=== PATIENT | male | born 1970 | race Hispanic/Latino ===

== ENCOUNTER 2018-01-06 21:56 | Emergency (ER) | payer BC, OTHER ==
--- NOTE | 2018-01-06 23:13 | RAD ---
THREE VIEWS LEFT ANKLE: 01/06/18 HISTORY: Left ankle pain. COMPARISON: 01/06/18 at 1620 hours. FINDINGS/IMPRESSION: On the AP projection, the talus appears laterally displaced with relation to the remainder of the mid foot and the anterior process of the talus does not align appropriately with the navicular bone on th e oblique view. Lateral projection does suggest fracture involving the distal talus. The subtalar yeni nt is also not well visualized on this exam. Again, findings are most suggestive of a fracture involv ing the talus with dislocation dislocation of the talus with respect to the calcaneus and probable di splacement and rotation of the fracture involving the anterior process of the talus. However, further evaluation with CT scan of the left foot is recommended. There is subcutaneous soft tissue swelling about the foot. Above findings discussed with Virginia Lea NP in the emergency department on 01/07/28 at 11:02 hour s. POS: EDIN
[2018-01-07] MEDS ORDERED: HYDROcodone/Acetaminophen 10/325 mg Tablet ONE (00:16)
--- NOTE | 2018-01-07 07:37 | CT ---
NONCONTRAST CT LEFT ANKLE AND FOOT: Date: 01/06/18 HISTORY: Fracture/dislocation left hindfoot noted on recent plain film evaluation also obtained on this date. The patient has left ankle pain after falling and twisting injury. FINDINGS: As noted on the plain film evaluation, the anterior process of the talus is dislocated laterally with respect to the navicular bone. There is evidence of a fracture involving the anterior and medial asp ect of the anterior process of the talus with several small fracture fragments also seen adjacent to the medial aspect of the talus. There is also a fracture involving the posterior and medial aspect of the talus with several displaced fracture fragments identified with dislocation at the level of the subtalar joint as well. The ankle mortise does appear congruent. No definite fracture is seen involvi ng the calcaneus. The talus is also dislocated slightly anteriorly with respect to the calcaneus. No additional fracture is appreciated. There is evidence of a joint effusion with punctate foci of gas seen adjacent to the navicular bone. There is subcutaneous soft tissue swelling about the dorsal aspect of the mid foot. There is subcutan eous edema also seen at both the medial and lateral aspect of the hindfoot and ankle. IMPRESSION: 1. Fracture and dislocation of the talus with respect to the calcaneus, primarily in the region of t he subtalar joint, as well as dislocation at the level of the talonavicular joint with several fractu re fragments seen involving the posteromedial aspect of the talus, as well as involving the anterior process of the talus. 2. Subcutaneous edema with joint effusion in the region of the talonavicular joint. POS: EDIN
== END 2018-01-07 00:22 | disposition home or self-care (01) ==
LOC: ERS 21:56
DX: S92.902A Unspecified fracture of left foot, initial encounter for closed fracture (principal); X50.1XXA Overexertion from prolonged static or awkward postures, initial encounter
CPT/HCPCS: 96372

== ENCOUNTER 2018-01-11 13:38 | Inpatient (IN) | payer BC, OTHER ==
[~2018-01-11 13:38] MED LIST: Bupivacaine HCl 0.5%/Epinephrine 1:200,000/PF 30 ml Vial ONE; Bupivacaine/Epinephrine 0.25% 30 ML VIAL ONE; Lidocaine 1% PF 5 ML VIAL ONE; Ondansetron HCl/PF 4 MG/2 ML Vial ONE; Propofol 200 MG/20 ML VIAL ONE; Succinylcholine Chloride 20 MG/ML 10 ml SYRINGE FS ONE
[2018-01-11] MEDS ORDERED: Midazolam HCl 2 mg/2 ml Vial ONE ×2 (14:28→16:31)
[2018-01-11] MEDS ORDERED: Fentanyl 100 MCG/2 ML VIAL ONE ×2 (14:29→16:31)
[2018-01-11] MEDS ORDERED: Dexamethasone 4 mg/ml Vial ONE (14:30)
[2018-01-11] MEDS ORDERED: Promethazine HCl 25 MG/ML VIAL IM PRN (14:50)
[2018-01-11] MEDS ORDERED: HYDROcodone/Acetaminophen 10/325 mg Tablet PO PRN ×2 (14:50)
[2018-01-11] MEDS ORDERED: traMADol HCl 50 MG TAB PO PRN ×2 (14:50)
[2018-01-11] MEDS ORDERED: Ondansetron HCl/PF 4 MG/2 ML Vial IVP PRN (14:50)
[2018-01-11] MEDS ORDERED: Zolpidem Tartrate 5 MG TAB PO PRN (14:50)
[2018-01-11] MEDS ORDERED: Ropivacaine 0.2% 550 ML 550 ML NERVE BLCK SCH (14:50)
[2018-01-11] MEDS ORDERED: Morphine 4 MG/ML VIAL SLOW IVP PRN (14:52)
[2018-01-11] MEDS ORDERED: CEFAZOLIN/Water 2 GM/20 ML SYRINGE ONE (15:09)
[2018-01-11 16:02] LABS: #Basophils 0.1 thou/uL (0.0-0.2); #Eosinphils 0.1 thou/uL (0.0-0.7); #Lymphocytes 5.4 thou/uL (1.20-3.40); #Monocytes 0.9 thou/uL (0.11-0.59); #Neutrophils 5.9 thou/uL (1.40-6.50); %Basophils 0.7 % (0.0-1.0); %Eosinophils 1.1 % (0.0-10.0); %Lymphocytes 43.6 % (21.0-51.0); %Monocytes 7.2 % (0.0-10.0); %Neutrophils 47.3 % (42.0-75.0); Hemoglobin 13.4 g/dL (14.0-18.0); Mean Corpuscular HGB CONC 35.1 g/dL (32.0-36.0); Mean Corpuscular Volume 88.4 fl (80.0-94.0); Mean Platelet Volume 6.7 fL (7.4-10.4); Platelet Count 193 thou/uL (130-400); RBC Distribution Width 11.6 % (11.5-14.5); Red Blood Cell (RBC) Count 4.31 mill/uL (4.70-6.10); White Blood Cell (WBC) Count 12.4 thou/uL (4.8-10.8)
[2018-01-11] MEDS ORDERED: Ketorolac Tromethamine 30 MG/ML VIAL IVP SCH (18:00)
--- NOTE | 2018-01-11 19:02 | RAD ---
THREE VIEWS OF THE LEFT ANKLE: 01/11/18 COMPARISON: 01/06/18. HISTORY: Closed reduction of ankle. FINDINGS/IMPRESSION: Three limited intraoperative fluoroscopic views of the left ankle were submitted for interpretation. No fracture or dislocation is appreciated on this exam, but evaluation is limited with the fluoroscop ic images. POS: EDIN
--- NOTE | 2018-01-12 21:02 | OP ---
DATE OF SURGERY: 01/11/2018 PREOPERATIVE DIAGNOSIS: Left subtalar dislocation with medial tubercle of the posterior process frac ture. POSTOPERATIVE DIAGNOSIS: Left subtalar dislocation with medial tubercle of the posterior process fra cture. SURGICAL PROCEDURE: Closed reduction of left subtalar dislocation. ANESTHESIA: General. SURGEON: Zackery Claudio M.D. OCCUPATIONAL REHABILITATION AIDE: Britton Reyes PA-C TOURNIQUET TIME: Zero. IMPLANTS: None. DRAINS: None. SPECIMEN: None. OUTCOME: Satisfactory. INDICATIONS: Mr. Rosales is a pleasant 47-year-old gentleman who fell from a height of approximately 1 5 feet into a ditch, sustaining injury to his left ankle. He was seen and evaluated at [facility] on 01/06/2018, at which time, x-rays of the left ankle and CT scan of the left foot were obtai gunjan. These studies demonstrated a left subtalar dislocation with fracture of the medial tubercle of the posterior process. Unfortunately, this was not reduced and upon presentation to my office ana maria mayberry was found to have a persistent subtalar dislocation. As such, the patient is taken to the op erating room emergently for reduction. We did make an attempt to contact workman's compensation for authorization; however, I did not feel that we could wait for authorization due to the emergent natur e of this subtalar dislocation. PROCEDURE IN DETAIL: The patient was brought to the operating room and a timeout performed followed by induction of general anesthesia. With the induction of general anesthesia, the foot was palpated and the navicular could be clearly palpated along the medial side of the foot with the talar dome pal pated laterally. Grasping the navicular and talar head, the two were essentially squeeze together an d this resulted in a palpable and audible clunk in which the navicular was now articulating with the head of the talus. This also resulted in reduction of the subtalar joint. AP, lateral and mortise x -rays of the ankle were obtained that confirmed good alignment and oblique x-ray of the foot also obt ained to ensure the anatomic reduction of the talonavicular joint. At this time, it was felt that th e swelling was too extensive to safely proceed with the osteosynthesis versus excision of the medial tubercle of the posterior process and it was felt that the emergent portion of this case was now done and that we could safely wait for authorization and for the soft tissue envelope to further heal bef ore proceeding with the formal surgical procedure. As such, the ankle was dressed in a posterior and stirrup fiberglass splint that was well padded at the completion of application of splint, the patie nt was then transferred to recovery room in stable condition. There were no complications and the pa tient tolerated the procedure well.
== END 2018-01-11 19:14 | disposition home or self-care (01) | DRG 563 ==
LOC: SURG A 13:38
PROVIDERS: ADMIT Orthopaedic Surgery; ATTEND Orthopaedic Surgery
PROC: 0SS Lower Joints, Reposition (ICD-10-PCS; principal; 2018-01-11)
DX: S93.315A Dislocation of tarsal joint of left foot, initial encounter (principal); S92.132A Displaced fracture of posterior process of left talus, initial encounter for closed fracture; W17.89XA Other fall from one level to another, initial encounter; Y93.89 Activity, other specified; Y92.89 Other specified places as the place of occurrence of the external cause; Y99.0 Civilian activity done for income or pay
CPT/HCPCS: 36415; 76000; 85025; A4306; J0670; J1100; J2001; J2250; J2405; J2704; J2795; J3010

== ENCOUNTER → 2018-01-26 | Day surgery (SDC) | payer OTHER ==
[2018-01-25 17:06] VITALS: BMI 33.0
[~2018-01-26] MED LIST changes: -Bupivacaine/Epinephrine 0.25% 30 ML VIAL ONE; +CEFAZOLIN/Water 2 GM/20 ML SYRINGE ONE; +Dexamethasone 20 MG/5 ML VIAL ONE; +Dexamethasone 4 mg/ml Vial ONE; +Fentanyl 100 MCG/2 ML VIAL IV PRN; +Fentanyl 100 MCG/2 ML VIAL ONE; +Glycopyrrolate 0.2 MG/ML 5 ML SYRINGE ONE; +HYDROcodone/Acetaminophen 10/325 mg Tablet PO PRN; +Ketorolac Tromethamine 30 MG/ML VIAL IVP PRN; +Midazolam HCl 2 mg/2 ml Vial ONE; +Ondansetron HCl/PF 4 MG/2 ML Vial IVP PRN; +PHENYLEPHRINE-NS 100 MCG/ML 10 ML SYRINGE ONE; +PROPOFOL 200 MG/20 ML VIAL ONE; +Promethazine HCl 25 MG/ML VIAL IM PRN; -Propofol 200 MG/20 ML VIAL ONE; +Ropivacaine 0.2% 550 ML 550 ML NERVE BLCK SCH; +Ropivacaine 0.2% HCl/PF (40 MG/20 ML VIAL) ONE; -Succinylcholine Chloride 20 MG/ML 10 ml SYRINGE FS ONE; +Zolpidem Tartrate 5 MG TAB PO PRN; +traMADol HCl 50 MG TAB PO PRN
--- NOTE | 2018-01-26 15:46 | OP ---
DATE OF OPERATION: 01/26/2018 OPERATION: Open reduction and internal fixation of left posterior medial talus fracture. PREOPERATIVE DIAGNOSIS: Left talus fracture. POSTOPERATIVE DIAGNOSIS: Left talus fracture. COMPLICATIONS: None. ESTIMATED BLOOD LOSS: Minimal. SURGEON: Ramos Hurst M.D. ANESTHESIA: General plus regional. INDICATIONS: Mr. Rosales is a 47-year-old male who injured himself at work. He fractured the talus. He had a dislocated subtalar joint. His dislocation has been reduced and now has been indicated for open reduction and internal fixation to restore anatomic alignment of the talus. Risks have been rev iewed in detail. He elected to proceed with the operation. IMPLANTS: Two 2.7 mm screws were used from [employer]. DESCRIPTION OF PROCEDURE: Mr. Rosales was identified in the preoperative holding area. His correct ex tremity was marked. He was carried to the operating room. He was positioned supine. General anesth esia was induced. A multidisciplinary timeout was performed. The left lower extremity was prepped a nd draped in sterile fashion. The patient was placed prone. We then made an approach to the posteri or aspect of the ankle and talus. An incision was made just medial to the Achilles border. We disse cted down through the subcutaneous tissues. We identified the FHL tendon. At this point, the tendon sheath was opened. This allowed retraction of the FHL tendon medially. This brought us down on the posterior talus. We encountered several comminuted fragments in one large articular fragment of bon e. We irrigated and removed hematoma. We then reduced the fracture fragment back into its anatomic position. This was held with a K-wire. We then placed two 2.7 mm screws across the fracture. We x- rayed these confirming reductions and hardware placement was appropriate. At this point, we thorough ly irrigated. We then repaired the retinaculum of the FHL. We then closed appropriately in layers. A sterile dressing and splint was placed. The patient was taken to the recovery room in good condit ion without complication.
--- NOTE | 2018-01-26 19:02 | RAD ---
RADIOGRAPH LEFT ANKLE 3 VIEWS: 01/26/18 at 1:51 p.m. HISTORY: 47-year-old male with talar fracture. FINDINGS: Three fluoroscopic spot images obtained with C-arm. There are two obliquely oriented screws, entering from posteromedial approach, embedded in the talus. No displaced fracture is identified. No dislocat ion or subluxation. The talar dome is maintained. IMPRESSION: Two screws placed at the talus. POS: JIN
== END ==
LOC: SDC 11:27
PROVIDERS: ATTEND Orthopaedic Surgery
PROC: 0QSM04Z Reposition Left Tarsal with Internal Fixation Device, Open Approach (ICD-10-PCS; principal; 2018-01-26)
DX: S92.132A Displaced fracture of posterior process of left talus, initial encounter for closed fracture (principal); G43.909 Migraine, unspecified, not intractable, without status migrainosus; F17.210 Nicotine dependence, cigarettes, uncomplicated; Z79.1 Long term (current) use of non-steroidal anti-inflammatories (NSAID); Z79.2 Long term (current) use of antibiotics; Z79.899 Other long term (current) drug therapy; Z98.890 Other specified postprocedural states; W17.2XXA Fall into hole, initial encounter; Y93.89 Activity, other specified; Y92.89 Other specified places as the place of occurrence of the external cause; Y99.0 Civilian activity done for income or pay
CPT/HCPCS: 76001; A4306; C1713; J0670; J1100; J2001; J2250; J2405; J2704; J2795; J3010

== ENCOUNTER 2018-01-28 09:00 | Emergency (ER) | payer BC, OTHER ==
[2018-01-28] MEDS ORDERED: Fentanyl 100 MCG/2 ML VIAL ONE (09:29)
[2018-01-28] MEDS ORDERED: Lorazepam 2 MG/ML VIAL ONE (09:29)
== END 2018-01-28 11:30 | disposition home or self-care (01) ==
LOC: ERS 09:00
DX: T85.615A Breakdown (mechanical) of other nervous system device, implant or graft, initial encounter (principal); G89.18 Other acute postprocedural pain; M25.572 Pain in left ankle and joints of left foot; F17.210 Nicotine dependence, cigarettes, uncomplicated; Z98.890 Other specified postprocedural states
CPT/HCPCS: 29515; 96372; J2060; J3010

== ENCOUNTER 2022-09-06 13:39 | Outpatient (CLI) | payer BC ==
[~2022-09-06 13:39] MED LIST changes: -Bupivacaine HCl 0.5%/Epinephrine 1:200,000/PF 30 ml Vial ONE; -CEFAZOLIN/Water 2 GM/20 ML SYRINGE ONE; -Dexamethasone 20 MG/5 ML VIAL ONE; -Dexamethasone 4 mg/ml Vial ONE; -Fentanyl 100 MCG/2 ML VIAL IV PRN; -Fentanyl 100 MCG/2 ML VIAL ONE; -Glycopyrrolate 0.2 MG/ML 5 ML SYRINGE ONE; -HYDROcodone/Acetaminophen 10/325 mg Tablet PO PRN; -Ketorolac Tromethamine 30 MG/ML VIAL IVP PRN; -Lidocaine 1% PF 5 ML VIAL ONE; +Magnevist 469MG/ML 20 ML VIAL ONE; -Midazolam HCl 2 mg/2 ml Vial ONE; -Ondansetron HCl/PF 4 MG/2 ML Vial IVP PRN; -Ondansetron HCl/PF 4 MG/2 ML Vial ONE; -PHENYLEPHRINE-NS 100 MCG/ML 10 ML SYRINGE ONE; -PROPOFOL 200 MG/20 ML VIAL ONE; -Promethazine HCl 25 MG/ML VIAL IM PRN; -Ropivacaine 0.2% 550 ML 550 ML NERVE BLCK SCH; -Ropivacaine 0.2% HCl/PF (40 MG/20 ML VIAL) ONE; -Zolpidem Tartrate 5 MG TAB PO PRN; -traMADol HCl 50 MG TAB PO PRN
== END 2022-09-06 13:40 | disposition home or self-care (01) ==
LOC: TBSIIMAG 13:39
PROVIDERS: ATTEND Neurological Surgery
DX: D35.2 Benign neoplasm of pituitary gland (principal)
CPT/HCPCS: 70553; A9579